=== PATIENT | male | born 1985 | race Caucasian/White ===

== ENCOUNTER 2021-08-23 14:17 | Inpatient (IN) | payer OTHER ==
[2021-08-23] MEDS ORDERED: cloNIDine HCL 0.1 MG TABLET PO PRN (17:03)
[2021-08-23] MEDS ORDERED: ACETAMINOPHEN 325 MG TABLET (FP) PO PRN ×2 (17:04)
[2021-08-23] MEDS ORDERED: ONDANSETRON *ODT* 4 MG TABLET SL PRN (17:04)
[2021-08-23] MEDS ORDERED: MAG HYDROX/AL HYDROX/SIMETH 30 ML UNIT-DOSE CUP PO PRN (17:04)
[2021-08-23] MEDS ORDERED: IBUPROFEN 400 MG TABLET (FP) PO PRN (17:04)
[2021-08-23] MEDS ORDERED: BISMUTH SUBSALICYLATE 524 MG/30 ML PO PRN (17:04)
[2021-08-23] MEDS ORDERED: MENTHOL/PHENOL 1 EACH UD MM PRN (17:04)
[2021-08-23] MEDS ORDERED: MAGNESIUM CITRATE 300 ML BOTTLE PO PRN (17:04)
[2021-08-23] MEDS ORDERED: MAGNESIUM HYDROX 2400MG/30ML ORAL SUSPENSION 30 ML CUP PO PRN (17:04)
[2021-08-23] MEDS ORDERED: ALBUTEROL SO4 HFA INHALER IH PRN (17:19)
[2021-08-23 18:21] VITALS: BMI 19.8
[2021-08-23] MEDS ORDERED: methaDONE HCL 10 MG TABLET (FOR DETOX USE ONLY) ONE (18:22)
[2021-08-23] MEDS ORDERED: hydrOXYzine PAMOATE 25 MG CAPSULE (FP) PO ONE (18:22)
[2021-08-23] MEDS: hydrOXYzine PAMOATE 25 MG CAPSULE (FP) PO SCH ×2 (18:25→22:27)
[2021-08-23] MEDS ORDERED: methaDONE HCL 10 MG TABLET (FOR DETOX USE ONLY) PO ONE (18:30)
[2021-08-23] MEDS: NICOTINE 10 MG CARTRIDGE (INHALER) IH PRN (20:13)
[2021-08-23] MEDS: THIAMINE HCL 100 MG TABLET (FP) PO SCH (22:27)
[2021-08-23] MEDS: MELATONIN 5 MG TABLETS PO SCH (22:27)
[2021-08-24] MEDS: hydrOXYzine PAMOATE 25 MG CAPSULE (FP) PO SCH ×5 (06:10→22:16)
[2021-08-24] MEDS ORDERED: methaDONE HCL 10 MG TABLET (FOR DETOX USE ONLY) ONE (09:12)
[2021-08-24] MEDS: METHOCARBAMOL 500 MG TABLET PO PRN (10:42)
[2021-08-24] MEDS: PRENATAL VITAMINS W/ FOLIC ACID TABLET (FP) PO SCH (10:42)
[2021-08-24] MEDS: NICOTINE 21 MG/24 HOURS TOPICAL PATCH TD SCH (10:43)
[2021-08-24] MEDS: NICOTINE 10 MG CARTRIDGE (INHALER) IH PRN ×2 (10:47→18:14)
[2021-08-24] MEDS: THIAMINE HCL 100 MG TABLET (FP) PO SCH (22:16)
[2021-08-24] MEDS: MELATONIN 5 MG TABLETS PO SCH (22:16)
[2021-08-25] MEDS: hydrOXYzine PAMOATE 25 MG CAPSULE (FP) PO SCH ×5 (05:37→22:30)
[2021-08-25] MEDS ORDERED: methaDONE HCL 10 MG TABLET (FOR DETOX USE ONLY) PO ONE (10:00)
[2021-08-25] MEDS: PRENATAL VITAMINS W/ FOLIC ACID TABLET (FP) PO SCH (10:40)
[2021-08-25] MEDS: METHOCARBAMOL 500 MG TABLET PO PRN (10:40)
[2021-08-25] MEDS: NICOTINE 21 MG/24 HOURS TOPICAL PATCH TD SCH (10:42)
[2021-08-25 11:05] LABS: HEMATOCRIT 43.7 % (35.4-49); HEMOGLOBIN 14.8 GM/dL (11.7-16.9); MCH 31.3 pg (25.7-33.7); MCHC 33.7 g/dl (32.0-35.9); MEAN CELL VOLUME 92.8 fl (80-96); MEAN PLT VOLUME 7.4 fl (7.5-11.1); PLATELET COUNT 308 10^3/uL (134-434); RBC 4.72 M/mm3 (4.00-5.60); RDW 13.4 % (11.9-15.9); WHITE BLOOD COUNT 7.8 K/mm3 (4.0-10.0)
[2021-08-25 14:05] LABS: ALBUMIN 3.8 g/dl (3.4-5.0); BILIRUBIN,TOTAL 0.3 mg/dL (0.2-1); BLOOD UREA NITROGEN 14.5 mg/dL (7-18); CALCIUM 9.3 mg/dL (8.5-10.1); CREATININE 0.9 mg/dL (0.55-1.3); TOT PROT 7.5 g/dl (6.4-8.2)
[2021-08-25] MEDS: NICOTINE 10 MG CARTRIDGE (INHALER) IH PRN ×2 (15:05→19:18)
[2021-08-25] MEDS: THIAMINE HCL 100 MG TABLET (FP) PO SCH (22:30)
[2021-08-25] MEDS: MELATONIN 5 MG TABLETS PO SCH (22:31)
[2021-08-26] MEDS: hydrOXYzine PAMOATE 25 MG CAPSULE (FP) PO SCH ×2 (06:14→10:40)
[2021-08-26] MEDS ORDERED: methaDONE HCL 10 MG TABLET (FOR DETOX USE ONLY) ONE (09:11)
[2021-08-26] MEDS: METHOCARBAMOL 500 MG TABLET PO PRN ×2 (10:40→22:14)
[2021-08-26] MEDS: PRENATAL VITAMINS W/ FOLIC ACID TABLET (FP) PO SCH (10:40)
[2021-08-26] MEDS: NICOTINE 21 MG/24 HOURS TOPICAL PATCH TD SCH (10:40)
[2021-08-26] MEDS ORDERED: SODIUM CHLORIDE NASAL SPRAY 44 ML BOTTLE NS PRN (13:13)
[2021-08-26] MEDS: LIDOCAINE 5% TOPICAL PATCH TP SCH (13:34)
[2021-08-26 17:04] LABS: PH,URINE 7.5 (5.0-8.0); URINE APPEARANCE CLEAR; URINE BILIRUBIN NEGATIVE (NEGATIVE); URINE COLOR YELLOW; URINE GLUCOSE (UA) NEGATIVE (NEGATIVE); URINE KETONE NEGATIVE (NEGATIVE); URINE LEUK ESTERASE NEGATIVE (NEGATIVE); URINE NITRITE NEGATIVE (NEGATIVE); URINE PROTEIN NEGATIVE (NEGATIVE); URINE UROBILINOGEN 0.2 mg/dL (0.2-1.0)
[2021-08-26 19:10] LABS: HIV INTERPRETATION NEGATIVE (NEGATIVE)
[2021-08-26] MEDS: THIAMINE HCL 100 MG TABLET (FP) PO SCH (22:13)
[2021-08-26] MEDS: SUVOREXANT 10 MG TABLET PO PRN (22:14)
[2021-08-26] MEDS: LIDOCAINE PATCH REMOVAL MC SCH (22:14)
[2021-08-27] MEDS ORDERED: methaDONE HCL 10 MG TABLET (FOR DETOX USE ONLY) PO ONE (10:00)
[2021-08-27] MEDS: PRENATAL VITAMINS W/ FOLIC ACID TABLET (FP) PO SCH (10:26)
[2021-08-27] MEDS: LIDOCAINE 5% TOPICAL PATCH TP SCH (10:26)
[2021-08-27] MEDS: METHOCARBAMOL 500 MG TABLET PO PRN (10:26)
[2021-08-27] MEDS: NICOTINE 21 MG/24 HOURS TOPICAL PATCH TD SCH (10:28)
[2021-08-27] MEDS: guaiFENesin 600 MG TABLET.ER (FP) PO SCH ×2 (13:49→22:05)
[2021-08-27] MEDS: THIAMINE HCL 100 MG TABLET (FP) PO SCH (22:04)
[2021-08-27] MEDS: SUVOREXANT 10 MG TABLET PO PRN (22:05)
[2021-08-27] MEDS: NICOTINE 10 MG CARTRIDGE (INHALER) IH PRN (22:12)
[2021-08-27] MEDS: hydrOXYzine PAMOATE 25 MG CAPSULE (FP) PO PRN (22:13)
[2021-08-27] MEDS: LIDOCAINE PATCH REMOVAL MC SCH (22:14)
[2021-08-28 09:33] VITALS: BP 133/73; PULSE 68; TEMP 98.2
[2021-08-28] MEDS: LIDOCAINE 5% TOPICAL PATCH TP SCH (10:25)
[2021-08-28] MEDS: PRENATAL VITAMINS W/ FOLIC ACID TABLET (FP) PO SCH (10:26)
[2021-08-28] MEDS: guaiFENesin 600 MG TABLET.ER (FP) PO SCH (10:26)
[2021-08-28] MEDS: NICOTINE 21 MG/24 HOURS TOPICAL PATCH TD SCH (10:27)
[2021-08-28] MEDS: hydrOXYzine PAMOATE 25 MG CAPSULE (FP) PO PRN (10:29)
== END 2021-08-28 11:14 | disposition home or self-care (01) | DRG 773 ==
LOC: YASAS 14:17 → Y6N 17:22
PROVIDERS: ADMIT Allergy & Immunology; ATTEND Allergy & Immunology
PROC: HZ2ZZZZ Detoxification Services for Substance Abuse Treatment (ICD-10-PCS; principal; 2021-08-23)
DX: F11.23 Opioid dependence with withdrawal (principal); F12.20 Cannabis dependence, uncomplicated; F17.210 Nicotine dependence, cigarettes, uncomplicated; F19.24 Other psychoactive substance dependence with psychoactive substance-induced mood disorder; F19.280 Other psychoactive substance dependence with psychoactive substance-induced anxiety disorder; F19.282 Other psychoactive substance dependence with psychoactive substance-induced sleep disorder; J45.20 Mild intermittent asthma, uncomplicated; Z56.0 Unemployment, unspecified; Z59.00 Homelessness unspecified
CPT/HCPCS: 36415; 80053; 81003; 82962; 83036; 85027; 86780; 87389; C9803; J0735; U0003; U0005

== ENCOUNTER 2021-08-31 07:03 | Inpatient (IN) | payer OTHER ==
[2021-08-31 07:27] VITALS: BMI 19.9
[2021-08-31] MEDS ORDERED: cloNIDine HCL 0.1 MG TABLET PO PRN (09:32)
[2021-08-31] MEDS ORDERED: ACETAMINOPHEN 325 MG TABLET (FP) PO PRN ×2 (09:32)
[2021-08-31] MEDS ORDERED: MAG HYDROX/AL HYDROX/SIMETH 30 ML UNIT-DOSE CUP PO PRN (09:32)
[2021-08-31] MEDS ORDERED: methaDONE HCL 10 MG TABLET (FOR DETOX USE ONLY) PO ONE (09:32)
[2021-08-31] MEDS ORDERED: IBUPROFEN 400 MG TABLET (FP) PO PRN (09:32)
[2021-08-31] MEDS ORDERED: MENTHOL/PHENOL 1 EACH UD MM PRN (09:32)
[2021-08-31] MEDS ORDERED: MAGNESIUM CITRATE 300 ML BOTTLE PO PRN (09:32)
[2021-08-31] MEDS ORDERED: ONDANSETRON *ODT* 4 MG TABLET SL PRN (09:32)
[2021-08-31] MEDS ORDERED: MAGNESIUM HYDROX 2400MG/30ML ORAL SUSPENSION 30 ML CUP PO PRN (09:32)
[2021-08-31] MEDS ORDERED: BISMUTH SUBSALICYLATE 262 MG/15 ML BTL PO PRN (09:32)
[2021-08-31] MEDS ORDERED: ALBUTEROL SO4 HFA INHALER IH PRN (09:35)
[2021-08-31] MEDS: PRENATAL VITAMINS W/ FOLIC ACID TABLET (FP) PO SCH (10:37)
[2021-08-31] MEDS: NICOTINE 14 MG/24 HOURS TOPICAL PATCH TD SCH (10:38)
[2021-08-31] MEDS: hydrOXYzine PAMOATE 25 MG CAPSULE (FP) PO SCH ×3 (10:38→17:42)
[2021-08-31] MEDS: METHOCARBAMOL 500 MG TABLET PO PRN (17:42)
[2021-08-31] MEDS: NICOTINE 10 MG CARTRIDGE (INHALER) IH PRN (18:24)
[2021-08-31] MEDS ORDERED: hydrOXYzine PAMOATE 25 MG CAPSULE (FP) PO SCH (19:00)
[2021-08-31] MEDS ORDERED: MELATONIN 5 MG TABLETS PO SCH (22:00)
[2021-08-31] MEDS: SUVOREXANT 10 MG TABLET PO PRN (22:17)
[2021-08-31] MEDS: THIAMINE HCL 100 MG TABLET (FP) PO SCH (22:18)
[2021-08-31] MEDS: hydrOXYzine PAMOATE 25 MG CAPSULE (FP) PO PRN (22:19)
[2021-09-01] MEDS ORDERED: methaDONE HCL 10 MG TABLET (FOR DETOX USE ONLY) ONE (09:28)
[2021-09-01] MEDS: PRENATAL VITAMINS W/ FOLIC ACID TABLET (FP) PO SCH (10:30)
[2021-09-01] MEDS: hydrOXYzine PAMOATE 25 MG CAPSULE (FP) PO PRN ×2 (10:32→22:12)
[2021-09-01] MEDS: NICOTINE 14 MG/24 HOURS TOPICAL PATCH TD SCH (10:32)
[2021-09-01] MEDS: METHOCARBAMOL 500 MG TABLET PO PRN ×2 (10:35→22:13)
[2021-09-01] MEDS ORDERED: CALAMINE 8% TOPICAL LOTION 177 ML BOTTLE TP PRN (10:50)
[2021-09-01 11:48] LABS: HEMATOCRIT 44.1 % (35.4-49); HEMOGLOBIN 14.5 GM/dL (11.7-16.9); MCH 30.8 pg (25.7-33.7); MEAN CELL VOLUME 93.3 fl (80-96); MEAN PLT VOLUME 7.6 fl (7.5-11.1); PLATELET COUNT 323 10^3/uL (134-434); RBC 4.72 M/mm3 (4.00-5.60); RDW 13.4 % (11.9-15.9); WHITE BLOOD COUNT 7.8 K/mm3 (4.0-10.0)
[2021-09-01 11:59] LABS: BLOOD UREA NITROGEN 14.5 mg/dL (7-18); CALCIUM 9.1 mg/dL (8.5-10.1)
[2021-09-01 12:00] LABS: ALBUMIN 3.6 g/dl (3.4-5.0)
[2021-09-01 12:03] LABS: CREATININE 0.9 mg/dL (0.55-1.3)
[2021-09-01 12:04] LABS: BILIRUBIN,TOTAL 0.3 mg/dL (0.2-1); TOT PROT 7.6 g/dl (6.4-8.2)
[2021-09-01] MEDS: LIDOCAINE 5% TOPICAL PATCH TP SCH (12:10)
[2021-09-01] MEDS: NICOTINE 10 MG CARTRIDGE (INHALER) IH PRN (21:10)
[2021-09-01] MEDS: SUVOREXANT 10 MG TABLET PO PRN (22:11)
[2021-09-01] MEDS: THIAMINE HCL 100 MG TABLET (FP) PO SCH (22:14)
[2021-09-01] MEDS: LIDOCAINE PATCH REMOVAL MC SCH (22:43)
[2021-09-02] MEDS ORDERED: methaDONE HCL 10 MG TABLET (FOR DETOX USE ONLY) PO ONE (10:00)
[2021-09-02] MEDS: PRENATAL VITAMINS W/ FOLIC ACID TABLET (FP) PO SCH (10:08)
[2021-09-02] MEDS: NICOTINE 14 MG/24 HOURS TOPICAL PATCH TD SCH (10:08)
[2021-09-02] MEDS: METHOCARBAMOL 500 MG TABLET PO PRN (10:09)
[2021-09-02] MEDS: NICOTINE 10 MG CARTRIDGE (INHALER) IH PRN (10:09)
[2021-09-02] MEDS: LIDOCAINE 5% TOPICAL PATCH TP SCH (10:10)
[2021-09-02] MEDS: HYDROCORTISONE 0.5% TOPICAL CREAM 30 GM TUBE TP SCH ×2 (14:20→22:05)
[2021-09-02] MEDS: hydrOXYzine PAMOATE 25 MG CAPSULE (FP) PO PRN ×2 (16:47→22:06)
[2021-09-02] MEDS: SUVOREXANT 10 MG TABLET PO PRN (22:02)
[2021-09-02] MEDS: THIAMINE HCL 100 MG TABLET (FP) PO SCH (22:03)
[2021-09-02] MEDS: LIDOCAINE PATCH REMOVAL MC SCH (22:05)
[2021-09-03] MEDS ORDERED: methaDONE HCL 10 MG TABLET (FOR DETOX USE ONLY) ONE (09:07)
[2021-09-03] MEDS: METHOCARBAMOL 500 MG TABLET PO PRN ×2 (10:13→21:15)
[2021-09-03] MEDS: hydrOXYzine PAMOATE 25 MG CAPSULE (FP) PO PRN ×2 (10:13→21:15)
[2021-09-03] MEDS: PRENATAL VITAMINS W/ FOLIC ACID TABLET (FP) PO SCH (10:13)
[2021-09-03] MEDS: LIDOCAINE 5% TOPICAL PATCH TP SCH (10:13)
[2021-09-03] MEDS: HYDROCORTISONE 0.5% TOPICAL CREAM 30 GM TUBE TP SCH ×2 (10:16→21:16)
[2021-09-03] MEDS: NICOTINE 14 MG/24 HOURS TOPICAL PATCH TD SCH (11:13)
[2021-09-03] MEDS: NICOTINE 10 MG CARTRIDGE (INHALER) IH PRN (12:34)
[2021-09-03] MEDS: THIAMINE HCL 100 MG TABLET (FP) PO SCH (21:15)
[2021-09-03] MEDS: LIDOCAINE PATCH REMOVAL MC SCH (21:16)
[2021-09-03] MEDS: SUVOREXANT 10 MG TABLET PO PRN (21:16)
[2021-09-04] MEDS ORDERED: methaDONE HCL 10 MG TABLET (FOR DETOX USE ONLY) PO ONE (10:00)
[2021-09-04] MEDS: PRENATAL VITAMINS W/ FOLIC ACID TABLET (FP) PO SCH (10:36)
[2021-09-04] MEDS: METHOCARBAMOL 500 MG TABLET PO PRN ×2 (10:36→22:13)
[2021-09-04] MEDS: NICOTINE 14 MG/24 HOURS TOPICAL PATCH TD SCH (10:37)
[2021-09-04] MEDS: HYDROCORTISONE 0.5% TOPICAL CREAM 30 GM TUBE TP SCH (10:37)
[2021-09-04] MEDS: LIDOCAINE 5% TOPICAL PATCH TP SCH (11:28)
[2021-09-04] MEDS: hydrOXYzine PAMOATE 25 MG CAPSULE (FP) PO PRN ×2 (13:45→22:15)
[2021-09-04 19:07] VITALS: TEMP 97.7
[2021-09-04] MEDS: THIAMINE HCL 100 MG TABLET (FP) PO SCH (22:16)
[2021-09-04] MEDS ORDERED: SUVOREXANT 10 MG TABLET PO PRN (22:31)
[2021-09-04 23:12] VITALS: BP 120/62; PULSE 67
[2021-09-05] MEDS: HYDROCORTISONE 0.5% TOPICAL CREAM 30 GM TUBE TP SCH (00:22)
[2021-09-05] MEDS: LIDOCAINE PATCH REMOVAL MC SCH (01:26)
== END 2021-09-05 10:02 | disposition home or self-care (01) | DRG 773 ==
LOC: YASAS 07:03 → Y6N 09:40
PROVIDERS: ADMIT Allergy & Immunology; ATTEND Allergy & Immunology
PROC: HZ2ZZZZ Detoxification Services for Substance Abuse Treatment (ICD-10-PCS; principal; 2021-08-31)
DX: F11.23 Opioid dependence with withdrawal (principal); F12.90 Cannabis use, unspecified, uncomplicated; F17.210 Nicotine dependence, cigarettes, uncomplicated; F19.282 Other psychoactive substance dependence with psychoactive substance-induced sleep disorder; F19.280 Other psychoactive substance dependence with psychoactive substance-induced anxiety disorder; J45.20 Mild intermittent asthma, uncomplicated; R73.9 Hyperglycemia, unspecified; R74.01 Elevation of levels of liver transaminase levels; Z56.0 Unemployment, unspecified; Z59.00 Homelessness unspecified
CPT/HCPCS: 36415; 80053; 85027; 86780; 87522; C9803; U0003; U0005

== ENCOUNTER 2022-09-04 14:38 | Inpatient (IN) | payer OTHER ==
[2022-09-04 16:52] VITALS: BMI 21.4
[2022-09-04] MEDS ORDERED: MAGNESIUM HYDROX 2400MG/30ML ORAL SUSPENSION 30 ML CUP PO PRN (17:55)
[2022-09-04] MEDS ORDERED: IBUPROFEN 400 MG TABLET (FP) PO PRN (17:55)
[2022-09-04] MEDS ORDERED: LOPERAMIDE HCL 2 MG CAPSULE PO PRN (17:55)
[2022-09-04] MEDS ORDERED: NALOXONE HCL (KLOXXADO) 8 MG SPRAY NS PRN (17:55)
[2022-09-04] MEDS ORDERED: ACETAMINOPHEN 325 MG TABLET (FP) PO PRN ×2 (17:55)
[2022-09-04] MEDS ORDERED: BISMUTH SUBSALICYLATE 524 MG/30 ML PO PRN (17:55)
[2022-09-04] MEDS ORDERED: guaiFENesin 200 MG/10 ML 10 ML UNIT-DOSE CUPS PO PRN (17:55)
[2022-09-04] MEDS ORDERED: P-EPHED 60MG/TRIPROLIDI 2.5MG TABLET PO PRN (17:55)
[2022-09-04] MEDS ORDERED: NICOTINE 10 MG CARTRIDGE (INHALER) IH PRN (17:55)
[2022-09-04] MEDS ORDERED: IBUPROFEN 600 MG TABLET (FP) PO PRN (17:55)
[2022-09-04] MEDS ORDERED: ONDANSETRON *ODT* 4 MG TABLET SL PRN (17:55)
[2022-09-04] MEDS ORDERED: DICYCLOMINE HCL 10 MG CAPSULE PO PRN (17:55)
[2022-09-04] MEDS ORDERED: NALOXONE HCL 0.4 MG/ML VIAL IM PRN (17:55)
[2022-09-04] MEDS ORDERED: BENZOCAINE/MENTHOL (CHLORASEPTIC ) LOZENGE MM PRN (17:55)
[2022-09-04] MEDS ORDERED: POLYETHYLENE GLYCOL (HEALTHYLAX) 3350 17 GM PACKET PO PRN (17:55)
[2022-09-04] MEDS: METHOCARBAMOL 500 MG TABLET PO PRN (22:12)
[2022-09-04] MEDS: hydrOXYzine PAMOATE 25 MG CAPSULE (FP) PO PRN (22:12)
[2022-09-04] MEDS: THIAMINE HCL 100 MG TABLET (FP) PO SCH (22:13)
[2022-09-04] MEDS: MELATONIN 5 MG TABLETS PO SCH (22:13)
[2022-09-05] MEDS ORDERED: ALBUTEROL SO4 HFA INHALER IH PRN (08:46)
[2022-09-05] MEDS ORDERED: methaDONE HCL 10 MG TABLET (FOR DETOX USE ONLY) PO ONE (09:00)
[2022-09-05] MEDS: PRENATAL VITAMINS W/ FOLIC ACID TABLET (FP) PO SCH (10:20)
[2022-09-05] MEDS: METHOCARBAMOL 500 MG TABLET PO PRN ×2 (10:21→22:07)
[2022-09-05] MEDS: hydrOXYzine PAMOATE 25 MG CAPSULE (FP) PO PRN (10:21)
[2022-09-05] MEDS: diazePAM 5 MG TABLET PO PRN ×3 (10:23→22:07)
[2022-09-05 14:59] LABS: ALBUMIN 3.4 g/dl (3.4-5.0); BLOOD UREA NITROGEN 15.7 mg/dL (7-18)
[2022-09-05 15:02] LABS: CREATININE 0.9 mg/dL (0.55-1.3)
[2022-09-05 15:03] LABS: BILIRUBIN,TOTAL 0.3 mg/dL (0.2-1)
[2022-09-05 15:04] LABS: TOT PROT 6.8 g/dl (6.4-8.2)
[2022-09-05 15:10] LABS: HEMATOCRIT 42.6 % (35.4-49); MCH 29.7 pg (25.7-33.7); MCHC 32.7 g/dl (32.0-35.9); MEAN CELL VOLUME 90.8 fl (80-96); MEAN PLT VOLUME 7.8 fl (7.5-11.1); PLATELET COUNT 215 10^3/uL (134-434); RBC 4.69 M/mm3 (4.00-5.60); RDW 13.3 % (11.9-15.9); WHITE BLOOD COUNT 6.9 K/mm3 (4.0-10.0)
[2022-09-05] MEDS: MELATONIN 5 MG TABLETS PO SCH (22:05)
[2022-09-05] MEDS: THIAMINE HCL 100 MG TABLET (FP) PO SCH (22:07)
[2022-09-06] MEDS: diazePAM 5 MG TABLET PO PRN ×2 (10:32→22:19)
[2022-09-06] MEDS: PRENATAL VITAMINS W/ FOLIC ACID TABLET (FP) PO SCH (10:33)
[2022-09-06] MEDS: METHOCARBAMOL 500 MG TABLET PO PRN ×2 (10:33→22:20)
[2022-09-06] MEDS: LIDOCAINE 5% TOPICAL PATCH TP SCH (10:37)
[2022-09-06] MEDS: cloNIDine HCL 0.1 MG TABLET PO PRN ×2 (14:02→22:18)
[2022-09-06] MEDS: hydrOXYzine PAMOATE 25 MG CAPSULE (FP) PO PRN (14:02)
[2022-09-06] MEDS: SELENIUM SULFIDE 2.5% LOTION 4 OZ. TP SCH (18:09)
[2022-09-06] MEDS: MAG HYDROX/AL HYDROX/SIMETH 30 ML UNIT-DOSE CUP PO PRN (19:25)
[2022-09-06] MEDS: LIDOCAINE PATCH REMOVAL MC SCH (22:19)
[2022-09-06] MEDS: MELATONIN 5 MG TABLETS PO SCH (22:19)
[2022-09-06] MEDS: THIAMINE HCL 100 MG TABLET (FP) PO SCH (22:20)
[2022-09-07] MEDS ORDERED: methaDONE HCL 10 MG TABLET (FOR DETOX USE ONLY) PO ONE (10:00)
[2022-09-07] MEDS: LIDOCAINE 5% TOPICAL PATCH TP SCH (10:25)
[2022-09-07] MEDS: diazePAM 5 MG TABLET PO PRN ×2 (10:25→22:20)
[2022-09-07] MEDS: METHOCARBAMOL 500 MG TABLET PO PRN (10:25)
[2022-09-07] MEDS: SELENIUM SULFIDE 2.5% LOTION 4 OZ. TP SCH (11:27)
[2022-09-07] MEDS: PRENATAL VITAMINS W/ FOLIC ACID TABLET (FP) PO SCH (11:27)
[2022-09-07] MEDS: THIAMINE HCL 100 MG TABLET (FP) PO SCH (22:20)
[2022-09-07] MEDS: MELATONIN 5 MG TABLETS PO SCH (22:21)
[2022-09-07] MEDS: MAG HYDROX/AL HYDROX/SIMETH 30 ML UNIT-DOSE CUP PO PRN (22:26)
[2022-09-07] MEDS: HYDROCORTISONE 0.5% TOPICAL CREAM 30 GM TUBE TP SCH (22:53)
[2022-09-07] MEDS: LIDOCAINE PATCH REMOVAL MC SCH (22:53)
[2022-09-08] MEDS: diazePAM 5 MG TABLET PO PRN (05:43)
[2022-09-08] MEDS: PRENATAL VITAMINS W/ FOLIC ACID TABLET (FP) PO SCH (10:39)
[2022-09-08] MEDS: METHOCARBAMOL 500 MG TABLET PO PRN ×2 (10:40→22:13)
[2022-09-08] MEDS: HYDROCORTISONE 0.5% TOPICAL CREAM 30 GM TUBE TP SCH ×2 (10:40→22:14)
[2022-09-08] MEDS: SELENIUM SULFIDE 2.5% LOTION 4 OZ. TP SCH (10:41)
[2022-09-08] MEDS: LIDOCAINE 5% TOPICAL PATCH TP SCH (10:41)
[2022-09-08] MEDS: hydrOXYzine PAMOATE 25 MG CAPSULE (FP) PO PRN ×2 (10:41→22:13)
[2022-09-08] MEDS: MAG HYDROX/AL HYDROX/SIMETH 30 ML UNIT-DOSE CUP PO PRN (10:43)
[2022-09-08] MEDS: MELATONIN 5 MG TABLETS PO SCH (22:13)
[2022-09-08] MEDS: THIAMINE HCL 100 MG TABLET (FP) PO SCH (22:13)
[2022-09-08] MEDS: LIDOCAINE PATCH REMOVAL MC SCH (22:15)
[2022-09-09] MEDS ORDERED: methaDONE HCL 10 MG TABLET (FOR DETOX USE ONLY) PO ONE (10:00)
[2022-09-09] MEDS: HYDROCORTISONE 0.5% TOPICAL CREAM 30 GM TUBE TP SCH ×2 (10:33→22:16)
[2022-09-09] MEDS: hydrOXYzine PAMOATE 25 MG CAPSULE (FP) PO PRN ×2 (10:33→18:52)
[2022-09-09] MEDS: PRENATAL VITAMINS W/ FOLIC ACID TABLET (FP) PO SCH (10:33)
[2022-09-09] MEDS: LIDOCAINE 5% TOPICAL PATCH TP SCH (10:33)
[2022-09-09] MEDS: METHOCARBAMOL 500 MG TABLET PO PRN ×2 (10:33→22:13)
[2022-09-09] MEDS: SELENIUM SULFIDE 2.5% LOTION 4 OZ. TP SCH (10:34)
[2022-09-09] MEDS: MELATONIN 5 MG TABLETS PO SCH (22:13)
[2022-09-09] MEDS: THIAMINE HCL 100 MG TABLET (FP) PO SCH (22:14)
[2022-09-09] MEDS: LIDOCAINE PATCH REMOVAL MC SCH (22:16)
[2022-09-10 06:27] VITALS: BP 111/63; PULSE 65; RESP 16; TEMP 97.5
== END 2022-09-10 09:16 | disposition home or self-care (01) | DRG 773 ==
LOC: YASAS 14:38 → Y6N 21:11
PROVIDERS: ADMIT Allergy & Immunology; ATTEND Surgery
PROC: HZ2ZZZZ Detoxification Services for Substance Abuse Treatment (ICD-10-PCS; principal; 2022-09-04)
DX: F11.23 Opioid dependence with withdrawal (principal); F14.20 Cocaine dependence, uncomplicated; F12.20 Cannabis dependence, uncomplicated; F17.210 Nicotine dependence, cigarettes, uncomplicated; J45.20 Mild intermittent asthma, uncomplicated; R73.9 Hyperglycemia, unspecified
CPT/HCPCS: 36415; 80053; 85027; 86780; C9803-CS; U0003; U0005

== ENCOUNTER 2022-10-01 14:45 | Inpatient (IN) | payer OTHER ==
[2022-10-01 17:19] VITALS: BMI 22.5
[2022-10-01] MEDS ORDERED: IBUPROFEN 600 MG TABLET (FP) PO PRN (17:35)
[2022-10-01] MEDS ORDERED: DICYCLOMINE HCL 10 MG CAPSULE PO PRN (17:35)
[2022-10-01] MEDS ORDERED: ONDANSETRON *ODT* 4 MG TABLET SL PRN (17:35)
[2022-10-01] MEDS ORDERED: NICOTINE POLACRILEX 2 MG GUM BUC PRN (17:35)
[2022-10-01] MEDS ORDERED: LOPERAMIDE HCL 2 MG CAPSULE PO PRN (17:35)
[2022-10-01] MEDS ORDERED: NALOXONE HCL (KLOXXADO) 8 MG SPRAY NS PRN (17:35)
[2022-10-01] MEDS ORDERED: MAGNESIUM HYDROX 2400MG/30ML ORAL SUSPENSION 30 ML CUP PO PRN (17:35)
[2022-10-01] MEDS ORDERED: ACETAMINOPHEN 325 MG TABLET (FP) PO PRN ×2 (17:35)
[2022-10-01] MEDS ORDERED: POLYETHYLENE GLYCOL (HEALTHYLAX) 3350 17 GM PACKET PO PRN (17:35)
[2022-10-01] MEDS ORDERED: BENZOCAINE/MENTHOL (CHLORASEPTIC ) LOZENGE MM PRN (17:35)
[2022-10-01] MEDS ORDERED: MAG HYDROX/AL HYDROX/SIMETH 30 ML UNIT-DOSE CUP PO PRN (17:35)
[2022-10-01] MEDS ORDERED: IBUPROFEN 400 MG TABLET (FP) PO PRN (17:35)
[2022-10-01] MEDS ORDERED: BISMUTH SUBSALICYLATE 524 MG/30 ML PO PRN (17:35)
[2022-10-01] MEDS ORDERED: methaDONE HCL 10 MG TABLET (FOR DETOX USE ONLY) PO ONE (18:00)
[2022-10-01] MEDS: PRENATAL VITAMINS W/ FOLIC ACID TABLET (FP) PO SCH (18:28)
[2022-10-01] MEDS: hydrOXYzine PAMOATE 25 MG CAPSULE (FP) PO PRN (18:29)
[2022-10-01] MEDS: METHOCARBAMOL 500 MG TABLET PO PRN (18:29)
[2022-10-01] MEDS: THIAMINE HCL 100 MG TABLET (FP) PO SCH (22:09)
[2022-10-01] MEDS: MELATONIN 5 MG TABLETS PO SCH (22:09)
[2022-10-02] MEDS ORDERED: HYDROCORTISONE 1% TOPICAL CREAM 30 GM TUBE TP PRN (10:04)
[2022-10-02] MEDS: METHOCARBAMOL 500 MG TABLET PO PRN ×2 (10:10→17:25)
[2022-10-02] MEDS: PRENATAL VITAMINS W/ FOLIC ACID TABLET (FP) PO SCH (10:10)
[2022-10-02] MEDS: hydrOXYzine PAMOATE 25 MG CAPSULE (FP) PO PRN ×2 (10:13→17:25)
[2022-10-02 11:50] LABS: HEMATOCRIT 41.8 % (35.4-49); HEMOGLOBIN 13.7 GM/dL (11.7-16.9); MCH 29.6 pg (25.7-33.7); MCHC 32.8 g/dl (32.0-35.9); MEAN CELL VOLUME 90.2 fl (80-96); MEAN PLT VOLUME 7.5 fl (7.5-11.1); PLATELET COUNT 306 10^3/uL (134-434); RBC 4.64 M/mm3 (4.00-5.60); RDW 13.3 % (11.9-15.9); WHITE BLOOD COUNT 8.5 K/mm3 (4.0-10.0)
[2022-10-02 12:01] LABS: ALBUMIN 3.7 g/dl (3.4-5.0); BLOOD UREA NITROGEN 20.5 mg/dL (7-18)
[2022-10-02 12:06] LABS: BILIRUBIN,TOTAL 0.6 mg/dL (0.2-1); TOT PROT 7.3 g/dl (6.4-8.2)
[2022-10-02 12:48] LABS: HIV INTERPRETATION NEGATIVE (NEGATIVE)
[2022-10-02] MEDS: cloNIDine HCL 0.1 MG TABLET PO PRN (20:37)
[2022-10-02] MEDS ORDERED: SUVOREXANT 10 MG TABLET PO PRN (22:00)
[2022-10-02] MEDS ORDERED: CLOTRIMAZOLE/BETAMET DIPROP 15 GM TUBE TP SCH (22:00)
[2022-10-02] MEDS: MELATONIN 5 MG TABLETS PO SCH (22:05)
[2022-10-02] MEDS: CLOTRIMAZOLE 1% CREAM TP SCH (22:07)
[2022-10-02] MEDS: THIAMINE HCL 100 MG TABLET (FP) PO SCH (22:07)
[2022-10-03] MEDS ORDERED: methaDONE HCL 10 MG TABLET (FOR DETOX USE ONLY) PO ONE (10:00)
[2022-10-03] MEDS: hydrOXYzine PAMOATE 25 MG CAPSULE (FP) PO PRN ×2 (10:21→22:03)
[2022-10-03] MEDS: PRENATAL VITAMINS W/ FOLIC ACID TABLET (FP) PO SCH (10:21)
[2022-10-03] MEDS: CLOTRIMAZOLE 1% CREAM TP SCH ×2 (10:24→22:05)
[2022-10-03] MEDS: SELENIUM SULFIDE 2.25% 180 ML SHAMPOO TP SCH (10:24)
[2022-10-03] MEDS: NICOTINE 10 MG CARTRIDGE (INHALER) IH PRN ×2 (11:30→16:51)
[2022-10-03] MEDS: cloNIDine HCL 0.1 MG TABLET PO PRN ×2 (12:49→17:26)
[2022-10-03] MEDS ORDERED: diazePAM 5 MG TABLET PO PRN (13:09)
[2022-10-03] MEDS: diazePAM 5 MG TABLET PO PRN ×2 (14:56→22:06)
[2022-10-03] MEDS ORDERED: LIDOCAINE 5% TOPICAL PATCH TP SCH (16:00)
[2022-10-03] MEDS: METHOCARBAMOL 500 MG TABLET PO PRN (17:26)
[2022-10-03] MEDS: LIDOCAINE 5% TOPICAL PATCH TP SCH (17:26)
[2022-10-03] MEDS: ARTIFICIAL TEARS (POLYVINYL ALCOHOL) OPTH DROPS OU PRN (18:05)
[2022-10-03] MEDS: MELATONIN 5 MG TABLETS PO SCH (22:03)
[2022-10-03] MEDS: THIAMINE HCL 100 MG TABLET (FP) PO SCH (22:03)
[2022-10-03] MEDS: ERYTHROMYCIN 0.5% OPHTHALMIC OINTMENT 3.5 GM TUBE OS SCH (22:04)
[2022-10-03] MEDS: LIDOCAINE PATCH REMOVAL MC SCH (22:04)
[2022-10-03] MEDS: HYDROCORTISONE 1% TOPICAL CREAM 30 GM TUBE TP PRN (23:01)
[2022-10-04] MEDS: LIDOCAINE 5% TOPICAL PATCH TP SCH (10:03)
[2022-10-04] MEDS: ERYTHROMYCIN 0.5% OPHTHALMIC OINTMENT 3.5 GM TUBE OS SCH (10:04)
[2022-10-04] MEDS: diazePAM 5 MG TABLET PO PRN (10:04)
[2022-10-04] MEDS: hydrOXYzine PAMOATE 25 MG CAPSULE (FP) PO PRN ×2 (10:04→17:52)
[2022-10-04] MEDS: METHOCARBAMOL 500 MG TABLET PO PRN ×2 (10:05→22:22)
[2022-10-04] MEDS: SELENIUM SULFIDE 2.25% 180 ML SHAMPOO TP SCH (10:08)
[2022-10-04] MEDS: PRENATAL VITAMINS W/ FOLIC ACID TABLET (FP) PO SCH (10:08)
[2022-10-04] MEDS: CLOTRIMAZOLE 1% CREAM TP SCH ×2 (10:08→22:23)
[2022-10-04] MEDS ORDERED: diazePAM 5 MG TABLET PO ONE (15:30)
[2022-10-04] MEDS: ARTIFICIAL TEARS (POLYVINYL ALCOHOL) OPTH DROPS OU PRN (18:24)
[2022-10-04] MEDS: NICOTINE 10 MG CARTRIDGE (INHALER) IH PRN (18:56)
[2022-10-04] MEDS: THIAMINE HCL 100 MG TABLET (FP) PO SCH (22:22)
[2022-10-04] MEDS: MELATONIN 5 MG TABLETS PO SCH (22:22)
[2022-10-04] MEDS: LIDOCAINE PATCH REMOVAL MC SCH (22:23)
[2022-10-05] MEDS ORDERED: methaDONE HCL 10 MG TABLET (FOR DETOX USE ONLY) PO ONE (10:00)
[2022-10-05] MEDS: LIDOCAINE 5% TOPICAL PATCH TP SCH (10:14)
[2022-10-05] MEDS: ERYTHROMYCIN 0.5% OPHTHALMIC OINTMENT 3.5 GM TUBE OS SCH (10:14)
[2022-10-05 10:15] VITALS: RESP 18; TEMP 97.8
[2022-10-05] MEDS: HYDROCORTISONE 1% TOPICAL CREAM 30 GM TUBE TP PRN (10:15)
[2022-10-05] MEDS: hydrOXYzine PAMOATE 25 MG CAPSULE (FP) PO PRN (10:17)
[2022-10-05] MEDS: SELENIUM SULFIDE 2.25% 180 ML SHAMPOO TP SCH (10:19)
[2022-10-05] MEDS: CLOTRIMAZOLE 1% CREAM TP SCH (10:19)
[2022-10-05] MEDS: PRENATAL VITAMINS W/ FOLIC ACID TABLET (FP) PO SCH (10:19)
[2022-10-05 12:59] VITALS: BP 166/96; PULSE 85
== END 2022-10-05 12:58 | disposition other institution (70) | DRG 773 ==
LOC: YASAS 14:45 → Y3N 17:40
PROVIDERS: ADMIT Allergy & Immunology; ATTEND Surgery
PROC: HZ2ZZZZ Detoxification Services for Substance Abuse Treatment (ICD-10-PCS; principal; 2022-10-02)
DX: F11.23 Opioid dependence with withdrawal (principal); F14.20 Cocaine dependence, uncomplicated; F12.20 Cannabis dependence, uncomplicated; F17.210 Nicotine dependence, cigarettes, uncomplicated; F31.9 Bipolar disorder, unspecified; F19.24 Other psychoactive substance dependence with psychoactive substance-induced mood disorder; F41.9 Anxiety disorder, unspecified; G47.00 Insomnia, unspecified; H69.80 Other specified disorders of Eustachian tube, unspecified ear; J45.20 Mild intermittent asthma, uncomplicated; Z87.39 Personal history of other diseases of the musculoskeletal system and connective tissue; Z56.0 Unemployment, unspecified; Z59.00 Homelessness unspecified; Z91.199 Patient's noncompliance with other medical treatment and regimen due to unspecified reason
CPT/HCPCS: 36415; 80053; 85027; 86780; 87389; C9803-CS; U0003; U0005